=== PATIENT | male | born 1955 | race Caucasian/White ===

== ENCOUNTER 2018-07-17 22:04 | Inpatient (IN) | payer OTHER ==
[~2018-07-17] VITALS: Ht 182.9 cm; Wt 122.0 kg
[2018-07-17 22:12] VITALS: Ht 182.9 cm; Wt 122.0 kg
[2018-07-17] MEDS ORDERED: ASPIR 8181 MG PO (23:09)
[2018-07-17] MEDS ORDERED: NEURONTIN300 MG PO (23:10)
[2018-07-17] MEDS ORDERED: APAP/HYDROCODON1 T13 PO (23:13)
[2018-07-17] MEDS ORDERED: LOSARTAN POTASS50 M1 PO (23:13)
[2018-07-17] MEDS ORDERED: METOPROLOL SUCC25 M2 PO (23:14)
[2018-07-17] MEDS ORDERED: PRO60 PO (23:14)
[2018-07-17] MEDS ORDERED: PANTOPRAZOLE SO40 M1 PO (23:15)
[2018-07-17] MEDS ORDERED: ALLOPURINOL100 MG PO (23:15)
[2018-07-17] MEDS ORDERED: ALPRAZOLAM1 MG PO ×2 (23:15→23:16)
[2018-07-17] MEDS ORDERED: ATORVASTATIN CA40 M1 PO (23:16)
[2018-07-17] MEDS ORDERED: CHOLECALCIFEROL1 CRY PO (23:17)
[2018-07-17] MEDS ORDERED: LIO10 PO (23:17)
[2018-07-17] MEDS ORDERED: NATURAL IRON65 MG PO (23:19)
[2018-07-17] MEDS ORDERED: CYMBALTA60 M1 PO (23:19)
[2018-07-17] MEDS ORDERED: CENTRUM ADULTS1 EACH PO (23:20)
[2018-07-18 01:13] LABS: BASOPHIL % 0.6 % (0-2); PLATELET COUNT 344 x10^3mcL (130-400)
[2018-07-18 01:14] LABS: RED CELL DISTRIBUTION WIDTH 16.3 % (11.5-14.5)
[2018-07-18 01:30] LABS: AMPHETAMINE QUAL UR NONE DETECTED (See below)
[2018-07-18 02:13] LABS: CALCIUM 7.9 mg/dL (8.5-10.1); CARBON DIOXIDE 24.8 mmol/L (21-32); CHLORIDE SERUM 108 mmol/L (98-107); CREATININE SERUM 2.1 mg/dL (0.7-1.3); GFR1 34 mL/min; GLUCOSE SERUM 128 mg/dL (74-106); POTASSIUM SERUM 4.4 mmol/L (3.5-5.1); SODIUM SERUM 144 mmol/L (136-145)
[2018-07-18 02:20] LABS: microscopic required? NO
[2018-07-18 02:21] LABS: ALKALINE PHOSPHATASE 170 U/L (46-116); ALT/SGPT 39 U/L (16-63); AST/SGOT 47 U/L (15-37); FREE T4 0.99 ng/dL (0.76-1.46); LIPASE 75 IU/L (73-393)
[2018-07-18 02:22] LABS: urine erythrocyte NEGATIVE (NEGATIVE)
[2018-07-18 02:22] LABS: ALBUMIN 2.7 g/dL (3.4-5.0)
[2018-07-18 04:57] VITALS: BP 110/53
[2018-07-18 08:09] LABS: CALCIUM 7.9 mg/dL (8.5-10.1); CARBON DIOXIDE 24.5 mmol/L (21-32); POTASSIUM SERUM 3.8 mmol/L (3.5-5.1)
[2018-07-18 08:32] LABS: BASOPHIL % 0.4 % (0-2); PLATELET COUNT 296 x10^3mcL (130-400); RED CELL DISTRIBUTION WIDTH 16.4 % (11.5-14.5)
[2018-07-18 08:33] VITALS: BP 113/60
[2018-07-18 12:29] VITALS: BP 123/74
[2018-07-18 16:03] VITALS: BP 128/71
[2018-07-18 20:38] VITALS: BP 130/69
[2018-07-19 05:29] VITALS: BP 155/84
[2018-07-19 07:30] LABS: BASOPHIL % 0.1 % (0-2); PLATELET COUNT 328 x10^3mcL (130-400)
[2018-07-19 07:43] LABS: RED CELL DISTRIBUTION WIDTH 15.9 % (11.5-14.5)
[2018-07-19 08:16] LABS: CALCIUM 8.2 mg/dL (8.5-10.1); CARBON DIOXIDE 24.3 mmol/L (21-32); CREATININE SERUM 1.3 mg/dL (0.7-1.3); MAGNESIUM 1.9 mg/dL (1.8-2.4); PHOSPHOROUS 2.2 mg/dL (2.5-4.9)
[2018-07-19 09:19] VITALS: BP 165/126
[2018-07-19 13:27] VITALS: BP 157/78
[2018-07-19 13:32] VITALS: BP 157/78
[2018-07-19 16:33] VITALS: BP 158/77
[2018-07-19 20:36] VITALS: BP 179/82
[2018-07-20 04:49] VITALS: BP 180/88
[2018-07-20 07:45] VITALS: BP 158/94
[2018-07-20 07:48] LABS: BASOPHIL % 0.1 % (0-2); PLATELET COUNT 376 x10^3mcL (130-400)
[2018-07-20 07:54] LABS: RED CELL DISTRIBUTION WIDTH 15.9 % (11.5-14.5)
[2018-07-20 08:45] LABS: CALCIUM 8.6 mg/dL (8.5-10.1); CARBON DIOXIDE 27.3 mmol/L (21-32); CHLORIDE SERUM 107 mmol/L (98-107); GFR1 > 60 mL/min; GLUCOSE SERUM 139 mg/dL (74-106); MAGNESIUM 1.5 mg/dL (1.8-2.4); POTASSIUM SERUM 3.7 mmol/L (3.5-5.1); SODIUM SERUM 144 mmol/L (136-145)
[2018-07-20 09:43] VITALS: BP 164/92
[2018-07-20 13:06] VITALS: BP 113/87
[2018-07-20 17:45] VITALS: BP 142/96
[2018-07-20 22:21] VITALS: BP 171/90
[2018-07-21] VITALS (9 sets, daily range): BP systolic 152–192; BP diastolic 84–96
[2018-07-21 07:53] LABS: PLATELET COUNT 444 x10^3mcL (130-400); RED CELL DISTRIBUTION WIDTH 16.7 % (11.5-14.5)
[2018-07-21 08:30] LABS: CHLORIDE SERUM 103 mmol/L (98-107); CREATININE SERUM 1.1 mg/dL (0.7-1.3); GFR1 > 60 mL/min; GLUCOSE SERUM 163 mg/dL (74-106); MAGNESIUM 1.7 mg/dL (1.8-2.4); POTASSIUM SERUM 3.7 mmol/L (3.5-5.1); SODIUM SERUM 140 mmol/L (136-145)
[2018-07-21 12:52] LABS: BAND NEUTROPHIL 0 % (0-10); BASOPHIL 0 % (0-2); MONOCYTE 15 % (0-7); SEGMENTED NEUTROPHILS 78 % (37-75); rbc morphology (normal/abnorm) ABNORMAL (NORMAL)
[2018-07-21 12:53] LABS: PLATELET MORPHOLOGY PLATELETS INCREASED
[2018-07-22] VITALS: BP 169/85
[2018-07-22 06:23] VITALS: BP 157/79
[2018-07-22 06:50] LABS: CALCIUM 9.2 mg/dL (8.5-10.1); CHLORIDE SERUM 99 mmol/L (98-107); CREATININE SERUM 1.1 mg/dL (0.7-1.3); GFR1 > 60 mL/min; GLUCOSE SERUM 122 mg/dL (74-106); POTASSIUM SERUM 3.6 mmol/L (3.5-5.1); SODIUM SERUM 136 mmol/L (136-145)
[2018-07-22 09:07] LABS: PLATELET COUNT 483 x10^3mcL (130-400); RED CELL DISTRIBUTION WIDTH 16.4 % (11.5-14.5)
[2018-07-22 10:11] VITALS: BP 132/82
[2018-07-22 11:24] LABS: BAND NEUTROPHIL 3 % (0-10); BASOPHIL 0 % (0-2); MONOCYTE 4 % (0-7); SEGMENTED NEUTROPHILS 92 % (37-75)
[2018-07-22 11:26] LABS: rbc morphology (normal/abnorm) ABNORMAL (NORMAL)
[2018-07-22 12:21] VITALS: BP 132/82
== END 2018-07-22 13:18 | disposition short-term general hospital (02) | DRG 682 ==
LOC: ED 22:04 → DU 07-18 03:13
PROVIDERS: Emergency Medicine; General Practice; ADMIT Internal Medicine
DX: N17.0 Acute kidney failure with tubular necrosis (principal); G93.41 Metabolic encephalopathy; I12.9 Hypertensive chronic kidney disease with stage 1 through stage 4 chronic kidney disease, or unspecified chronic kidney disease; E66.9 Obesity, unspecified; N18.3 Chronic kidney disease, stage 3 (moderate); E11.22 Type 2 diabetes mellitus with diabetic chronic kidney disease; I25.10 Atherosclerotic heart disease of native coronary artery without angina pectoris; I48.91 Unspecified atrial fibrillation; E78.5 Hyperlipidemia, unspecified; I25.2 Old myocardial infarction; Z95.0 Presence of cardiac pacemaker; Z79.82 Long term (current) use of aspirin; Z95.1 Presence of aortocoronary bypass graft; Z68.38 Body mass index [BMI] 38.0-38.9, adult
CPT/HCPCS: 82962; 83880; 84439; 87804; 97110-GP; 97116-GP; 97530-GP; G0480; J0360; J1885; J2405; J2543; J3370; J3475; J3490; J7030; J7060; Q0092